=== PATIENT | male | born 1960 | race Caucasian/White ===

== ENCOUNTER 2023-11-07 13:47 | Outpatient (CLI) | payer BC ==
[2023-11-07 15:42] LABS: #Eosinphils 0.2 10x3/uL (0.0-0.5); #Monocytes 0.5 10x3/uL (0.0-1.1); #Neutrophils 3.2 10x3/uL (1.5-8.4); %Basophils 0.8 % (0.0-2.0); %Lymphocytes 24.8 % (18.0-47.0); %Monocytes 9.8 % (0.0-10.0); %Neutrophils 60.2 % (40.0-75.0); Hematocrit 34.5 % (38.8-50.0); Hemoglobin 12.3 g/dL (13.5-17.5); Mean Corpuscular HGB CONC 35.7 g/dL (32.0-36.0); Mean Corpuscular Hemoglobin 32.9 pg (27.0-33.0); Mean Corpuscular Volume 92.2 fl (81.2-95.1); Mean Platelet Volume 11.6 fl (7.4-10.4); Platelet Count 223 10x3/uL (150-450); RBC Distribution Width 12.1 % (11.5-14.5); Red Blood Cell (RBC) Count 3.74 10x6/uL (4.32-5.72); White Blood Cell (WBC) Count 5.3 10x3/uL (3.5-10.5)
[2023-11-07 16:10] LABS: Anion Gap 16 mmol/L (10-20); BUN (Urea Nitrogen) 11 mg/dL (8.4-25.7); Calc. Creatinine Clearance 0 mL/min (70-130); Calcium 9.2 mg/dL (7.8-10.44); Carbon Dioxide 29 mmol/L (23-31); Chloride 97 mmol/L (98-107); Estimated GFR 99; Glucose 112 mg/dL (80-115); Potassium 3.2 mmol/L (3.5-5.1)
[2023-11-07 16:25] LABS: Sodium 139 mmol/L (136-145)
== END 2023-11-07 13:48 | disposition home or self-care (01) ==
LOC: LABBT 13:47
PROVIDERS: ATTEND Orthopaedic Surgery
DX: Z01.818 Encounter for other preprocedural examination (principal); S76.111A Strain of right quadriceps muscle, fascia and tendon, initial encounter
CPT/HCPCS: 80048; 85025; 93005; 93010

== ENCOUNTER 2023-11-10 08:28 | Day surgery (SDC) | payer BC ==
[2023-11-08 10:40] VITALS: BMI 29.5
[2023-11-10] MEDS ORDERED: Midazolam HCl 2 mg/2 ml Vial ONE (09:45)
[2023-11-10] MEDS ORDERED: Bupivacaine PF 0.5% 30 ML VIAL ONE (09:45)
[2023-11-10] MEDS ORDERED: fentaNYL 50 mcg/mL 1 mL Vial ONE ×4 (09:45→14:02)
[2023-11-10] MEDS ORDERED: PROPOFOL 20 ML ONE (10:43)
[2023-11-10] MEDS ORDERED: HYDROmorphone 2 MG/ML VIAL ONE (10:43)
[2023-11-10] MEDS ORDERED: Sodium Chloride 0.9% 100 ML ONE (11:13)
[2023-11-10] MEDS ORDERED: CEFAZOLIN 2 GM VIAL ONE (11:13)
[2023-11-10] MEDS ORDERED: Bupivacaine 0.25% HCL 30 ML VIAL ONE (12:02)
[2023-11-10] MEDS ORDERED: EPINEPHrine 1 MG/ML VIAL ONE (12:02)
[2023-11-10] MEDS ORDERED: Ondansetron PF 4 MG/2 ML Vial ONE (13:00)
[2023-11-10] MEDS ORDERED: Ketorolac Tromethamine 30 MG (1 mL) VIAL ONE (13:00)
[2023-11-10] MEDS ORDERED: Ondansetron ODT 4 MG TAB ONE (15:27)
== END 2023-11-10 17:03 | disposition home or self-care (01) ==
LOC: SDC 08:28
PROVIDERS: ATTEND Orthopaedic Surgery
PROC: 0LU Tendons, Supplement (ICD-10-PCS; principal; 2023-11-10)
DX: S76.111A Strain of right quadriceps muscle, fascia and tendon, initial encounter (principal); S93.402A Sprain of unspecified ligament of left ankle, initial encounter; I10 Essential (primary) hypertension; E11.9 Type 2 diabetes mellitus without complications; J30.2 Other seasonal allergic rhinitis; E78.5 Hyperlipidemia, unspecified; Z86.16 Personal history of COVID-19; Z98.890 Other specified postprocedural states; Z79.899 Other long term (current) drug therapy; W10.8XXA Fall (on) (from) other stairs and steps, initial encounter
CPT/HCPCS: 36416; C1713; J0171; J0665; J1170; J1885; J2250; J2405; J2704; J3010; J3490; L1830; Q0162